=== PATIENT | female | born 1985 ===

== ENCOUNTER 2023-12-18 02:38 | Outpatient (CLI) | payer OTHER, SELFPAY ==
[2023-12-18 09:58] LABS: Glucose 1 Hour 205 mg/dL
[2023-12-18 11:32] LABS: Glucose 3 Hour 153 mg/dL
== END 2023-12-18 02:39 | disposition home or self-care (01) ==
LOC: LBO 02:38
PROVIDERS: Visit Provider Nurse Practitioner Women's Health
DX: R73.09 Other abnormal glucose (principal)
CPT/HCPCS: 36415; 82951